=== PATIENT | female | born 1945 | race Caucasian/White ===

== ENCOUNTER 2023-04-02 05:59 | Day surgery (SDC) | payer MEDICARE, OTHER, SELFPAY ==
--- NOTE | 2023-02-26 11:39 | CM ---
Patient is scheduled for an elective L Reverse TSA on - she is a same day patient. Spoke with patient prior to surgery. Introduced role of Orthopedic Navigator. Patient reports that she lives with her and son in a two story home.
There are two (1-1) steps to enter and a flight of steps to0 the second floor. Currently she functions independently and uses a cane. She also has a commode, shower seat, nebulizer and sling. She reports a distant history of having had VN services.
PCP is Artemio Chong.
Discussed orthopedic program and post surgical plans. Patient will return home when directed by surgeon. Reviewed MD follow up and transition to outpatient therapy. Patient is in agreement with tentative plan and states that her will be home
with her and can assist if needed.
Patient will complete online education.
Plan: Orthopedic Navigator will be involved in the care of patient after surgery and will reassess discharge needs at that time.
[2023-03-13 12:56] VITALS: BMI 28.0
[2023-03-13 15:43] VITALS: BMI 28.0
[2023-04-02] VITALS (13 sets, daily range): BP systolic 112–161; BP diastolic 75–93; BMI 28.0
[2023-04-02] MEDS: TYLENOL 1000 MG PO (06:34)
[2023-04-02] MEDS: CELEBREX 200 MG PO (06:34)
[2023-04-02] MEDS: NORMOSOL-R 1000 IV (06:35)
[2023-04-02] MEDS: VANCOCIN 200 IV (06:35)
[2023-04-02] MEDS: ANCEF 5 IV (11:24)
== END 2023-04-02 12:09 | disposition home or self-care (01) ==
LOC: SDS 05:59
PROVIDERS: ATTENDING PHYSICIAN Specialist; FAMILY PHYSICIAN Physician Assistant; OTHER PHYSICIAN Internal Medicine Critical Care Medicine; OTHER PHYSICIAN Internal Medicine Interventional Cardiology; OTHER PHYSICIAN Physician Assistant
DX: M19.012 Primary osteoarthritis, left shoulder (principal)
CPT/HCPCS: 23472; 36415; 73020; 86850; 86900; 86901; 87070; 87147; C1713; C1776

== ENCOUNTER → 2023-04-17 12:58 | Outpatient (REF) | payer MEDICARE, OTHER, SELFPAY | LOC: CLAB 12:58 | PROVIDERS: ATTENDING PHYSICIAN Family Medicine | DX: R39.9 Unspecified symptoms and signs involving the genitourinary system (principal) | CPT/HCPCS: 87077; 87086; 87186 ==

== ENCOUNTER → 2023-04-22 10:52 | Outpatient (REF) | payer MEDICARE, OTHER, SELFPAY | LOC: HWRAD 10:52 | PROVIDERS: ATTENDING PHYSICIAN Physician Assistant | DX: M19.012 Primary osteoarthritis, left shoulder (principal); Z96.612 Presence of left artificial shoulder joint | CPT/HCPCS: 73030 ==

== ENCOUNTER 2023-05-01 17:04 | Emergency (ER) | payer MEDICARE, OTHER, SELFPAY ==
[2023-05-01 17:07] VITALS: BP 123/79
[2023-05-01 17:43] VITALS: BMI 27.7
[2023-05-01 17:50] VITALS: BP 124/76
[2023-05-01 18:00] VITALS: BP 135/86
--- NOTE | 2023-05-01 18:10 | ED.GENMED ---
History of Present Illness
General
Chief Complaint: Fall
Time Seen by Provider: 05/01/23 17:54
Travel History
Have you had any contact with someone who has COVID-19?: No
Do you have any symptoms of coronavirus? Fever > 100 degrees, chills, cough, shortness of breath, sore throat, loss of taste or smell, muscle aches, or headache?: No
History of Present Illness
History of Present Illness:
HPI: Patient presents by car after a fall down about 4 steps. She struck her head on the hardwood steps. She also has left knee pain and states that her knee buckled backwards during the fall. She denies any other injury other than some
intermittent comfort more so on the left side. She had surgery left shoulder about 4 weeks ago currently on a full-strength aspirin. Because of the fact that she has been favoring her shoulder she thinks she has been having trouble with her
balance and may have slipped in her slippers today as well.
EXAM:
GENERAL: Well appearing in no distress
CERVICAL SPINE: Inconsistent midline c-spine tenderness with excellent AROM also with some tenderness to the left paraspinal musculature
HEAD: There is a scalp hematoma on the right parietal region
CHEST: No chest wall tenderness, normal heart sounds
LUNGS: Equal lung sounds, no respiratory distress
ABDOMEN: No abdominal tenderness, no peritoneal signs
EXTREMITIES: Normal active range of motion, no tenderness
NEURO: Excellent strength all extremities, appropriate mental status, normal speech/language
TIME OF INITIAL ENCOUNTER: 6:15 PM
NUMBER AND COMPLEXITY OF PROBLEMS ADDRESSED AT THE ENCOUNTER
� Chronic conditions affecting care: Anxiety/depression, chronic balance problems, high blood pressure, has had bowel obstruction, hypothyroidism
� Acute Exacerbation and/or Progression of Chronic Illness: This is an acute problem
� Differential Diagnosis includes: Scalp hematoma, cervical spine fracture, knee sprain, knee fracture
AMOUNT AND/OR COMPLEXITY OF DATA TO BE REVIEWED AND ANALYZED
� I performed an independent evaluation of and my interpretation is:
EKG:
CT: I personally viewed CT imaging of the brain and C-spine and see no acute abnormality other than scalp hematoma�agree with radiologist
X-rays: X-ray shows no acute abnormality
Laboratory Studies:
Other:
� Review of other/old records: I reviewed old records, the patient went to the OR with Dr. Morrell on 04/02/2023 related to osteoarthritis of the left hip
� Clinical information was obtained by an independent historian: I spoke to the at bedside
� Prescriptions/Medications Considered but not given:
� Further testing considered but not performed:
RISK OF COMPLICATIONS AND/OR MORBIDITY OR MORTALITY OF PATIENT MANAGEMENT
� Social determinants of health affecting care: Lives at home
� Discussion with other providers:
� Escalation of care including admission/observation vs risk of discharge considered: The patient was given Tylenol for pain. Given the patient's age on full-strength aspirin evidence of head trauma, CT imaging was obtained.
The patient has not had no further concerns while in the ED including on reassessment at 7:30 PM, however she did ask about her left shoulder�there is no new symptoms at the left shoulder. I did examine the left shoulder more thoroughly and there
is no bony tenderness with fairly good active range of motion and postop state.
Past History
Past History
ED Past Medical History: Asthma, Fibromyalgia, HTN, Psychiatric (Depression) and Other (Scoliosis, spinal stenosis, Bowel obstructioin, )
ED Past Surgical History: Orthopedic (Right and left hip replacement. Left was twice. Right knee replacement, ) and Other (Rectocele with mesh)
Social History
Tobacco: Non-smoker
Alcohol: None
Personal:
Living: with family
Phy Exam
Physical Exam
Physical Exam:
See HPI
Course
Orders/Labs/Results
Orders:
Orders
05/01/23 18:17
CT Cervical Spine W/o Iv Contr Urgent
Comment:
Reason For Exam: trauma
CT Head W/o Iv Contrast Urgent
Comment:
Reason For Exam: head trauma R hematoma
Acetaminophen [Tylenol] 650 mg PO NOW STA
CR Knee - Left 4 Or More View* Urgent
Comment:
Reason For Exam: trauma pain superior patella
Vital Signs
Initial and Last Documented VS:
Initial Vital Signs
Temp Pulse Resp BP Pulse Ox
98.3 F 90 18 123/79 98
05/01/23 17:07 05/01/23 17:07 05/01/23 17:07 05/01/23 17:07 05/01/23 17:07
Last Documented Vital Signs
Temp Pulse Resp BP Pulse Ox
98.3 F 90 18 135/86 98
05/01/23 17:07 05/01/23 17:07 05/01/23 17:07 05/01/23 18:00 05/01/23 17:07
*Critical Care Note
Total Time (30-74mins, 75-104mins- exclusive of procedures): Not Applicable
ED Attending Note
-
Portions of this chart may have been created with voice recognition software.� Occasional wrong word or��sound alike� substitutions may have occurred due to the inherent limitations of voice recognition software.
Discharge Plan
Departure
Patient Disposition: Home (Routine Discharge)
Date of Disposition: 05/01/23
Time of Disposition: 19:32
Patient with high blood pressure during this ER visit?: Yes
Discharge Problem:
Hematoma of scalp
Prescriptions:
No Action
cetirizine 10 mg Tablet
10 mg PO HS
levothyroxine [Synthroid] 75 mcg Tablet
75 mcg PO DAILY
ferrous sulfate [Iron (ferrous sulfate)] 325 mg (65 mg iron) Tablet
325 mg PO [id number]
buspirone 10 mg Tablet
10 mg PO HS
cyclosporine [Restasis] 0.05 % Dropperette
1 drp OPHTHALMIC (EYE) Q12H
coenzyme Q10 [Co Q-10] 200 mg Capsule
200 mg PO DAILY
Hold Instructions: Resume on 04/09/23.
pregabalin [Lyrica] 75 mg Capsule
75 mg PO DAILY
pregabalin [Lyrica] 100 mg Capsule
100 mg PO HS
omeprazole 20 mg Tablet,Delayed Release (Dr/Ec)
20 mg PO DAILY
Prolia 60 mg/mL Syringe
60 mg SC [id number]
Rx Instructions:
next dose - week of 03/10
Centrum Silver Women 8 mg iron-400 mcg-50 mcg Tablet
1 tab PO DAILY
latanoprost (PF) 0.005 % Dropperette
1 drp OPHTHALMIC (EYE) QPM
tramadol 50 mg tablet
50 - 100 mg PO Q6H PRN (Reason: moderate-severe pain) Qty: 30 0RF
Rx Instructions:
1 tab for moderate pain, 2 if severe.
Dx total joint.
meloxicam 15 mg tablet
15 mg PO DAILY Qty: 14 0RF
Rx Instructions:
Take with food.
DO NOT take within 2 hours of Aspirin post-surgery.
dexamethasone 4 mg tablet
4 mg PO BID Qty: 7 0RF
Rx Instructions:
Start night of discharge and take twice a day for 3 days post-surgery.
Take with food.
ondansetron HCl 4 mg tablet
4 mg PO Q6H PRN (Reason: nausea and vomiting) Qty: 30 0RF
Rx Instructions:
Can take 1/2 hour prior to Tramadol if experiencing recurrent nausea.
Benefiber (guar gum)
2 tsp PO DAILY
calcium carbonate [Calcium 600] 600 mg calcium (1,500 mg) tablet
600 mg PO DAILY Qty: 1 0RF
mupirocin 2 % ointment
1 applic intranasal BID Qty: 1 0RF
Rx Instructions:
Continue twice a day for 2 weeks post-surgery as surgical incision heals.
aspirin 325 mg tablet
325 mg PO DAILY Qty: 30 0RF
Rx Instructions:
Take daily x4 weeks for blood clot prevention
docusate sodium [Colace] 100 mg capsule
100 mg PO BID Qty: 30 0RF
sennosides [senna] 8.6 mg tablet
17.2 mg PO BID Qty: 30 0RF
losartan 50 mg Tablet
50 mg PO HS Qty: 0 0RF
Rx Instructions:
HOLD IF systolic blood pressure <130 while on Tramadol.
acetaminophen 650 mg Tablet Extended Release
1,300 mg PO Q8H Qty: 0 0RF
Rx Instructions:
DO NOT exceed >4000 mg daily
Referrals:
Artemio Chong PA-C [Family Provider] -
Activity Restrictions/Additional Instructions:
The CAT scan of your brain shows no bleeding inside the brain. The CAT scan of the cervical spine shows degenerative disease but no sign of fracture. The x-ray shows some arthritic changes but no sign of fracture or fluid buildup.
Interventions
Interventions:
*Risk Screen - Suicide Last Done: 05/01/23 17:07
*General Assessment Last Done: 05/01/23 17:07
*Neglect/Abuse Screening Last Done: 05/01/23 17:07
ED- Fall Risk Assessment Last Done: 05/01/23 17:43
*ED COVID-19 Vaccine History Last Done: 05/01/23 17:07
ED-Musculoskeletal Assessment Last Done: 05/01/23 17:43
ED- Neurological Assessment Last Done: 05/01/23 17:43
ED-Skin Assessment Last Done: 05/01/23 17:43
[2023-05-01] MEDS: TYLENOL 650 MG PO (18:33)
== END 2023-05-01 19:55 | disposition home or self-care (01) ==
LOC: EMR 17:04
PROVIDERS: EMERGENCY PHYSICIAN Emergency Medicine; FAMILY PHYSICIAN Physician Assistant
DX: S00.03XA Contusion of scalp, initial encounter (principal); M25.562 Pain in left knee; W10.9XXA Fall (on) (from) unspecified stairs and steps, initial encounter; I10 Essential (primary) hypertension; F41.9 Anxiety disorder, unspecified; F32.A Depression, unspecified; E03.9 Hypothyroidism, unspecified; M16.12 Unilateral primary osteoarthritis, left hip; J45.909 Unspecified asthma, uncomplicated; M79.7 Fibromyalgia; Z96.651 Presence of right artificial knee joint; Z96.642 Presence of left artificial hip joint; Z98.890 Other specified postprocedural states; Z79.82 Long term (current) use of aspirin; Z88.1 Allergy status to other antibiotic agents; Z88.0 Allergy status to penicillin; Z88.8 Allergy status to other drugs, medicaments and biological substances
CPT/HCPCS: 99284; 70450; 72125; 73564

== ENCOUNTER → 2023-05-06 14:24 | Outpatient (REF) | payer MEDICARE, OTHER, SELFPAY | LOC: CLAB 14:24 | PROVIDERS: ATTENDING PHYSICIAN Family Medicine | DX: N39.0 Urinary tract infection, site not specified (principal) | CPT/HCPCS: 87086 ==

== ENCOUNTER → 2023-05-09 10:05 | Outpatient (REF) | payer MEDICARE, OTHER, SELFPAY ==
[2023-05-09 17:56] LABS: Urine Albumin Trace (Neg - Trace); Urine Bilirubin Negative (Negative); Urine Character Clear (Clear); Urine Color Yellow; Urine Glucose Negative (Negative); Urine Ketone Negative (Negative); Urine Leukocyte Negative (Negative); Urine Nitrite Negative (Negative); Urine Occult Blood Negative (Negative); Urine Urobilinogen Negative (Neg - 1+)
== END ==
LOC: CLAB 10:05
PROVIDERS: ATTENDING PHYSICIAN Family Medicine
DX: N39.0 Urinary tract infection, site not specified (principal)
CPT/HCPCS: 81003; 87086

== ENCOUNTER → 2023-05-24 19:15 | Outpatient (REF) | payer MEDICARE, OTHER, SELFPAY | LOC: MRI 3T 19:15 | PROVIDERS: ATTENDING PHYSICIAN Physician Assistant | DX: G89.29 Other chronic pain (principal); M25.562 Pain in left knee | CPT/HCPCS: 73721 ==

== ENCOUNTER → 2023-06-10 10:02 | Outpatient (REF) | payer MEDICARE, OTHER, SELFPAY ==
[2023-06-10 12:52] LABS: % Basophils 1.1 % (0-2); % Eosinophils 5.5 % (0-6); % Immature Granulocytes 0.2 % (0-0.5); % Lymphocytes 42.8 % (20.5-51.1); % Neutrophils 40.4 % (42.2-75.2); Absolute Basophils 0.1 10^3/uL (0-0.2); Absolute Eosinophils 0.3 10^3/uL (0-0.7); Absolute Monocytes 0.5 10^3/uL (0.1-0.6); Absolute Neutrophils 1.9 10^3/uL (1.4-6.5); Hematocrit 31.7 % (37.0-47.0); Hemoglobin 9.9 g/dL (12.0-16.0); Mean Corp Hgb Conc. 31.2 g/dL (33.0-37.0); Mean Corpuscular Hgb 26.1 pg (27.0-31.0); Mean Corpuscular Volume 83.4 fL (81.0-99.0); Mean Platelet Volume 10.1 fL (7.4-10.4); Nucleated Red Blood Cells % 0 %; Platelet Count 286 10^3/uL (130-400); Red Cell Dist. Width 15.1 % (11.5-14.5); White Blood Cell Count 4.7 10^3/uL (4.8-10.8)
[2023-06-10 13:46] LABS: ALT (SGPT) 15 U/L (0-35); AST (SGOT) 28 U/L (14-36); Alkaline Phosphatase 64 U/L (38-126); Blood Urea Nitrogen 14 mg/dl (7-17); Calcium 9.1 mg/dl (8.4-10.2); Carbon Dioxide 26 mmol/L (22-30); Chloride 104 mmol/L (98-107); Glucose 90 mg/dl (70-99); Potassium 4.9 mmol/L (3.5-5.1); Sodium 136 mmol/L (135-145); Total Bilirubin 0.4 mg/dl (0.2-1.3); Total Protein 6.9 g/dl (6.3-8.2); eGFR > 60.00
== END ==
LOC: HWLAB 10:02
PROVIDERS: ATTENDING PHYSICIAN Internal Medicine Rheumatology; FAMILY PHYSICIAN Physician Assistant
DX: M25.512 Pain in left shoulder (principal); M25.552 Pain in left hip; M81.0 Age-related osteoporosis without current pathological fracture; Z51.81 Encounter for therapeutic drug level monitoring
CPT/HCPCS: 36415; 80053; 85025

== ENCOUNTER → 2023-06-12 10:48 | Outpatient (REF) | payer MEDICARE, OTHER, SELFPAY | LOC: HWRAD 10:48 | PROVIDERS: ATTENDING PHYSICIAN Internal Medicine Rheumatology; FAMILY PHYSICIAN Physician Assistant | DX: M81.0 Age-related osteoporosis without current pathological fracture (principal); Z13.820 Encounter for screening for osteoporosis | CPT/HCPCS: 77080 ==

== ENCOUNTER → 2023-07-01 10:47 | Outpatient (REF) | payer MEDICARE, OTHER, SELFPAY ==
[2023-07-01 15:30] LABS: ALT (SGPT) 18 U/L (0-35); AST (SGOT) 31 U/L (14-36); Albumin 4.1 g/dl (3.5-5.0); Alkaline Phosphatase 55 U/L (38-126); Blood Urea Nitrogen 18 mg/dl (7-17); Calcium 9.1 mg/dl (8.4-10.2); Carbon Dioxide 29 mmol/L (22-30); Chloride 101 mmol/L (98-107); Direct Bilirubin 0.2 mg/dl (0.0-0.4); Glucose 92 mg/dl (70-99); LDH 252 U/L (120-246); Potassium 4.7 mmol/L (3.5-5.1); Sodium 136 mmol/L (135-145); Total Bilirubin 0.3 mg/dl (0.2-1.3); eGFR > 60.00
[2023-07-01 15:31] LABS: CRP, Highly Sensitive 2.06 mg/L
[2023-07-01 15:34] LABS: Erythrocyte Sed Rate 30 mm/hour (0-20)
[2023-07-01 15:40] LABS: % Basophils 0.8 % (0-2); % Eosinophils 3.3 % (0-6); % Immature Granulocytes 0.2 % (0-0.5); % Monocytes 11.4 % (1.7-9.3); % Neutrophils 42.3 % (42.2-75.2); Absolute Eosinophils 0.2 10^3/uL (0-0.7); Absolute Lymphocytes 2.1 10^3/uL (1.2-3.4); Absolute Monocytes 0.6 10^3/uL (0.1-0.6); Absolute Neutrophils 2.2 10^3/uL (1.4-6.5); Hematocrit 32.8 % (37.0-47.0); Hemoglobin 10.5 g/dL (12.0-16.0); Mean Corpuscular Hgb 26.2 pg (27.0-31.0); Mean Corpuscular Volume 81.8 fL (81.0-99.0); Mean Platelet Volume 10.1 fL (7.4-10.4); Nucleated Red Blood Cells % 0 %; Platelet Count 285 10^3/uL (130-400); Red Blood Cell Count 4.01 10^6/uL (4.20-5.40); Red Cell Dist. Width 15.5 % (11.5-14.5); Reticulocyte Count 0.9 % (0.4-2.8); White Blood Cell Count 5.1 10^3/uL (4.8-10.8)
[2023-07-01 16:34] LABS: Folate > 20.0 ng/ml (2.76-20); Vitamin B12 409 pg/ml (239-931)
== END ==
LOC: HWLAB 10:47
PROVIDERS: ATTENDING PHYSICIAN Nurse Practitioner Adult Health; FAMILY PHYSICIAN Physician Assistant
DX: D64.9 Anemia, unspecified (principal); R53.82 Chronic fatigue, unspecified; D50.9 Iron deficiency anemia, unspecified
CPT/HCPCS: 36415; 80053; 82248; 82607; 82668; 82746; 82784; 83010; 83521; 83615; 84155; 84165; 85025; 85045; 85652; 86038; 86141; 86334; 86880

== ENCOUNTER → 2023-08-30 11:10 | Outpatient (REF) | payer MEDICARE, OTHER, SELFPAY ==
[2023-08-30 15:59] LABS: Iron 64 ug/dl (37-170)
[2023-08-30 16:09] LABS: Percent Saturation 17 % (20-50); Total Iron Binding Capacity 357 ug/dl (265-497)
[2023-08-30 16:10] LABS: % Basophils 0.6 % (0-2); % Eosinophils 2.5 % (0-6); % Immature Granulocytes 0.3 % (0-0.5); % Lymphocytes 31.8 % (20.5-51.1); % Monocytes 9.7 % (1.7-9.3); % Neutrophils 55.1 % (42.2-75.2); Absolute Eosinophils 0.2 10^3/uL (0-0.7); Absolute Monocytes 0.6 10^3/uL (0.1-0.6); Absolute Neutrophils 3.5 10^3/uL (1.4-6.5); Hematocrit 33.9 % (37.0-47.0); Hemoglobin 11.1 g/dL (12.0-16.0); Mean Corp Hgb Conc. 32.7 g/dL (33.0-37.0); Mean Corpuscular Hgb 26.9 pg (27.0-31.0); Mean Corpuscular Volume 82.1 fL (81.0-99.0); Mean Platelet Volume 9.9 fL (7.4-10.4); Nucleated Red Blood Cells % 0 %; Platelet Count 298 10^3/uL (130-400); Red Blood Cell Count 4.13 10^6/uL (4.20-5.40); Red Cell Dist. Width 15.1 % (11.5-14.5); White Blood Cell Count 6.3 10^3/uL (4.8-10.8)
[2023-08-30 16:36] LABS: Ferritin 39.7 ng/ml (11.1-264.0)
== END ==
LOC: HWLAB 11:10
PROVIDERS: ATTENDING PHYSICIAN Internal Medicine Hematology & Oncology; FAMILY PHYSICIAN Family Medicine
DX: D64.9 Anemia, unspecified (principal); R53.82 Chronic fatigue, unspecified
CPT/HCPCS: 36415; 82728; 83540; 83550; 85025

== ENCOUNTER → 2023-09-16 15:53 | Outpatient (REF) | payer MEDICARE, OTHER, SELFPAY ==
[2023-09-16 16:18] LABS: % Basophils 0.6 % (0-2); % Eosinophils 1.9 % (0-6); % Immature Granulocytes 0.4 % (0-0.5); % Lymphocytes 31.9 % (20.5-51.1); % Monocytes 10.3 % (1.7-9.3); % Neutrophils 54.9 % (42.2-75.2); Absolute Eosinophils 0.1 10^3/uL (0-0.7); Absolute Lymphocytes 2.3 10^3/uL (1.2-3.4); Absolute Monocytes 0.7 10^3/uL (0.1-0.6); Hematocrit 32.2 % (37.0-47.0); Hemoglobin 10.8 g/dL (12.0-16.0); Mean Corp Hgb Conc. 33.5 g/dL (33.0-37.0); Mean Corpuscular Hgb 27.4 pg (27.0-31.0); Mean Corpuscular Volume 81.7 fL (81.0-99.0); Mean Platelet Volume 9.9 fL (7.4-10.4); Nucleated Red Blood Cells % 0 %; Platelet Count 285 10^3/uL (130-400); Red Blood Cell Count 3.94 10^6/uL (4.20-5.40); Red Cell Dist. Width 14.8 % (11.5-14.5); White Blood Cell Count 7.2 10^3/uL (4.8-10.8)
== END ==
LOC: OIDL 15:53
PROVIDERS: ATTENDING PHYSICIAN Internal Medicine Hematology & Oncology
DX: D64.9 Anemia, unspecified (principal)
CPT/HCPCS: 85025

== ENCOUNTER → 2023-10-16 11:28 | Outpatient (REF) | payer MEDICARE, OTHER, SELFPAY ==
[2023-10-16 15:45] LABS: % Basophils 1.1 % (0-2); % Eosinophils 7.5 % (0-6); % Immature Granulocytes 0.6 % (0-0.5); % Monocytes 9.9 % (1.7-9.3); % Neutrophils 44.9 % (42.2-75.2); Absolute Basophils 0.1 10^3/uL (0-0.2); Absolute Eosinophils 0.4 10^3/uL (0-0.7); Absolute Lymphocytes 1.9 10^3/uL (1.2-3.4); Absolute Monocytes 0.5 10^3/uL (0.1-0.6); Absolute Neutrophils 2.4 10^3/uL (1.4-6.5); Hemoglobin 11.1 g/dL (12.0-16.0); Mean Corp Hgb Conc. 33.6 g/dL (33.0-37.0); Mean Corpuscular Hgb 28.2 pg (27.0-31.0); Mean Platelet Volume 9.5 fL (7.4-10.4); Nucleated Red Blood Cells % 0 %; Platelet Count 319 10^3/uL (130-400); Red Blood Cell Count 3.93 10^6/uL (4.20-5.40); Red Cell Dist. Width 15.6 % (11.5-14.5); White Blood Cell Count 5.4 10^3/uL (4.8-10.8)
[2023-10-16 15:48] LABS: Iron 88 ug/dl (37-170)
[2023-10-16 15:57] LABS: Percent Saturation 32 % (20-50); Total Iron Binding Capacity 275 ug/dl (265-497)
== END ==
LOC: HWLAB 11:28
PROVIDERS: ATTENDING PHYSICIAN Internal Medicine Hematology & Oncology; FAMILY PHYSICIAN Family Medicine
DX: D64.9 Anemia, unspecified (principal); R53.82 Chronic fatigue, unspecified; D50.8 Other iron deficiency anemias
CPT/HCPCS: 36415; 82728; 83540; 83550; 85025

== ENCOUNTER → 2023-12-26 11:18 | Outpatient (REF) | payer MEDICARE, OTHER, SELFPAY ==
[2023-12-26 15:22] LABS: ALT (SGPT) 20 U/L (0-35); AST (SGOT) 31 U/L (14-36); Albumin 4.3 g/dl (3.5-5.0); Alkaline Phosphatase 45 U/L (38-126); Blood Urea Nitrogen 18 mg/dl (7-17); Calcium 9.4 mg/dl (8.4-10.2); Carbon Dioxide 30 mmol/L (22-30); Chloride 102 mmol/L (98-107); Glucose 90 mg/dl (70-99); HDL Cholesterol 52 mg/dl; LDL Cholesterol, Calculated 82 mg/dl; Potassium 4.4 mmol/L (3.5-5.1); Sodium 143 mmol/L (135-145); Total Bilirubin 0.3 mg/dl (0.2-1.3); Total Cholesterol 173 mg/dl (50-199); Total Protein 7.2 g/dl (6.3-8.2); Triglyceride 198 mg/dl (10-149); Very Low Density Lipoprotein 39 mg/dl (0-30); eGFR > 60.00
[2023-12-26 15:33] LABS: % Basophils 0.9 % (0-2); % Eosinophils 5.9 % (0-6); % Immature Granulocytes 0.3 % (0-0.5); % Lymphocytes 41.5 % (20.5-51.1); % Monocytes 9.7 % (1.7-9.3); % Neutrophils 41.7 % (42.2-75.2); Absolute Basophils 0.1 10^3/uL (0-0.2); Absolute Eosinophils 0.3 10^3/uL (0-0.7); Absolute Lymphocytes 2.4 10^3/uL (1.2-3.4); Absolute Monocytes 0.6 10^3/uL (0.1-0.6); Absolute Neutrophils 2.4 10^3/uL (1.4-6.5); Hematocrit 37.3 % (37.0-47.0); Hemoglobin 12.4 g/dL (12.0-16.0); Mean Corp Hgb Conc. 33.2 g/dL (33.0-37.0); Mean Corpuscular Hgb 30.1 pg (27.0-31.0); Mean Corpuscular Volume 90.5 fL (81.0-99.0); Nucleated Red Blood Cells % 0 %; Platelet Count 266 10^3/uL (130-400); Red Blood Cell Count 4.12 10^6/uL (4.20-5.40); Red Cell Dist. Width 14.1 % (11.5-14.5); White Blood Cell Count 5.8 10^3/uL (4.8-10.8)
[2023-12-26 15:39] LABS: Free T4 1.31 ng/dl (0.78-2.19)
[2023-12-26 15:53] LABS: TSH 2.44 uIU/ml (0.47-4.68)
[2023-12-27 10:07] LABS: Glycohemoglobin (HgbA1c) 5.7 % (4.0-5.6)
== END ==
LOC: HWLAB 11:18
PROVIDERS: ATTENDING PHYSICIAN Family Medicine
DX: R73.03 Prediabetes (principal); E03.9 Hypothyroidism, unspecified
CPT/HCPCS: 36415; 80053; 80061; 83036; 84439; 84443; 85025

== ENCOUNTER → 2024-01-08 16:29 | Outpatient (REF) | payer MEDICARE, OTHER, SELFPAY | LOC: PAVMRI 16:29 | PROVIDERS: ATTENDING PHYSICIAN Physical Medicine & Rehabilitation Pain Medicine; FAMILY PHYSICIAN Family Medicine | DX: M54.16 Radiculopathy, lumbar region (principal) | CPT/HCPCS: 72148 ==

== ENCOUNTER → 2024-02-10 10:51 | Outpatient (REF) | payer MEDICARE, OTHER, SELFPAY ==
[2024-02-10 16:02] LABS: % Basophils 0.9 % (0-2); % Eosinophils 6.5 % (0-6); % Immature Granulocytes 0.4 % (0-0.5); % Lymphocytes 33.6 % (20.5-51.1); % Monocytes 10.9 % (1.7-9.3); % Neutrophils 47.7 % (42.2-75.2); Absolute Basophils 0.1 10^3/uL (0-0.2); Absolute Eosinophils 0.4 10^3/uL (0-0.7); Absolute Lymphocytes 1.8 10^3/uL (1.2-3.4); Absolute Monocytes 0.6 10^3/uL (0.1-0.6); Absolute Neutrophils 2.6 10^3/uL (1.4-6.5); Hemoglobin 11.8 g/dL (12.0-16.0); Mean Corp Hgb Conc. 31.1 g/dL (33.0-37.0); Mean Corpuscular Hgb 29.4 pg (27.0-31.0); Mean Corpuscular Volume 94.5 fL (81.0-99.0); Mean Platelet Volume 10.3 fL (7.4-10.4); Nucleated Red Blood Cells % 0 %; Platelet Count 247 10^3/uL (130-400); Red Blood Cell Count 4.02 10^6/uL (4.20-5.40); Red Cell Dist. Width 12.8 % (11.5-14.5); White Blood Cell Count 5.4 10^3/uL (4.8-10.8)
[2024-02-10 16:18] LABS: Iron 80 ug/dl (37-170)
[2024-02-10 16:27] LABS: Percent Saturation 27 % (20-50); Total Iron Binding Capacity 286 ug/dl (265-497)
== END ==
LOC: HWLAB 10:51
PROVIDERS: ATTENDING PHYSICIAN Nurse Practitioner Adult Health; FAMILY PHYSICIAN Family Medicine
DX: D64.9 Anemia, unspecified (principal); R53.82 Chronic fatigue, unspecified; D50.8 Other iron deficiency anemias
CPT/HCPCS: 36415; 82728; 83540; 83550; 85025

== ENCOUNTER → 2024-03-18 10:02 | Outpatient (REF) | payer MEDICARE, OTHER, SELFPAY ==
[2024-03-18 11:54] LABS: % Basophils 0.5 % (0-2); % Eosinophils 3.8 % (0-6); % Immature Granulocytes 0.3 % (0-0.5); % Lymphocytes 29.4 % (20.5-51.1); % Monocytes 9.3 % (1.7-9.3); % Neutrophils 56.7 % (42.2-75.2); Absolute Eosinophils 0.2 10^3/uL (0-0.7); Absolute Lymphocytes 1.7 10^3/uL (1.2-3.4); Absolute Monocytes 0.5 10^3/uL (0.1-0.6); Absolute Neutrophils 3.2 10^3/uL (1.4-6.5); Hematocrit 37.7 % (37.0-47.0); Hemoglobin 12.5 g/dL (12.0-16.0); Mean Corp Hgb Conc. 33.2 g/dL (33.0-37.0); Mean Corpuscular Hgb 30.3 pg (27.0-31.0); Mean Corpuscular Volume 91.5 fL (81.0-99.0); Mean Platelet Volume 9.8 fL (7.4-10.4); Nucleated Red Blood Cells % 0 %; Platelet Count 260 10^3/uL (130-400); Red Blood Cell Count 4.12 10^6/uL (4.20-5.40); Red Cell Dist. Width 12.5 % (11.5-14.5); White Blood Cell Count 5.7 10^3/uL (4.8-10.8)
[2024-03-18 13:19] LABS: ALT (SGPT) 18 U/L (0-35); AST (SGOT) 27 U/L (14-36); Albumin 4.6 g/dl (3.5-5.0); Alkaline Phosphatase 49 U/L (38-126); Blood Urea Nitrogen 14 mg/dl (7-17); Calcium 9.6 mg/dl (8.4-10.2); Carbon Dioxide 27 mmol/L (22-30); Chloride 101 mmol/L (98-107); Glucose 87 mg/dl (70-99); Iron 114 ug/dl (37-170); Potassium 4.1 mmol/L (3.5-5.1); Sodium 138 mmol/L (135-145); Total Bilirubin 0.8 mg/dl (0.2-1.3); Total Protein 7.1 g/dl (6.3-8.2); eGFR > 60.00
[2024-03-18 13:28] LABS: Percent Saturation 38 % (20-50); Total Iron Binding Capacity 296 ug/dl (265-497)
[2024-03-18 13:55] LABS: Glycohemoglobin (HgbA1c) 5.4 % (4.0-5.6)
[2024-03-18 16:37] LABS: TSH 2.51 uIU/ml (0.47-4.68)
== END ==
LOC: HWLAB 10:02
PROVIDERS: ATTENDING PHYSICIAN Family Medicine
DX: D58.2 Other hemoglobinopathies (principal); D50.9 Iron deficiency anemia, unspecified; E03.9 Hypothyroidism, unspecified; I10 Essential (primary) hypertension; R73.03 Prediabetes
CPT/HCPCS: 36415; 80053; 82728; 83036; 83540; 83550; 84439; 84443; 85025

== ENCOUNTER → 2024-04-01 14:27 | Outpatient (REF) | payer MEDICARE, OTHER, SELFPAY | LOC: DHSLP 14:27 | PROVIDERS: ATTENDING PHYSICIAN Internal Medicine Critical Care Medicine; FAMILY PHYSICIAN Family Medicine | DX: G47.33 Obstructive sleep apnea (adult) (pediatric) (principal) | CPT/HCPCS: 95800 ==

== ENCOUNTER → 2024-04-15 11:10 | Outpatient (REF) | payer MEDICARE, OTHER, SELFPAY | LOC: HWRCS 11:10 | PROVIDERS: ATTENDING PHYSICIAN Physician Assistant Medical; FAMILY PHYSICIAN Family Medicine | DX: R00.2 Palpitations (principal); R06.09 Other forms of dyspnea | CPT/HCPCS: 93306 ==

== ENCOUNTER → 2024-05-04 10:44 | Outpatient (REF) | payer MEDICARE, OTHER, SELFPAY ==
[2024-05-04 17:24] LABS: % Basophils 0.6 % (0-2); % Eosinophils 4.2 % (0-6); % Immature Granulocytes 0.4 % (0-0.5); % Lymphocytes 37.2 % (20.5-51.1); % Monocytes 10.3 % (1.7-9.3); % Neutrophils 47.3 % (42.2-75.2); Absolute Eosinophils 0.2 10^3/uL (0-0.7); Absolute Lymphocytes 1.9 10^3/uL (1.2-3.4); Absolute Monocytes 0.5 10^3/uL (0.1-0.6); Absolute Neutrophils 2.4 10^3/uL (1.4-6.5); Hematocrit 36.5 % (37.0-47.0); Hemoglobin 12.3 g/dL (12.0-16.0); Mean Corp Hgb Conc. 33.7 g/dL (33.0-37.0); Mean Corpuscular Hgb 30.3 pg (27.0-31.0); Mean Corpuscular Volume 89.9 fL (81.0-99.0); Mean Platelet Volume 10.6 fL (7.4-10.4); Nucleated Red Blood Cells % 0 %; Platelet Count 228 10^3/uL (130-400); Red Blood Cell Count 4.06 10^6/uL (4.20-5.40); Red Cell Dist. Width 12.1 % (11.5-14.5)
[2024-05-04 17:36] LABS: Iron 103 ug/dl (37-170)
[2024-05-04 17:45] LABS: Percent Saturation 36 % (20-50); Total Iron Binding Capacity 281 ug/dl (265-497)
== END ==
LOC: HWLAB 10:44
PROVIDERS: ATTENDING PHYSICIAN Nurse Practitioner Adult Health; FAMILY PHYSICIAN Family Medicine
DX: D64.9 Anemia, unspecified (principal); R53.82 Chronic fatigue, unspecified; D50.8 Other iron deficiency anemias
CPT/HCPCS: 36415; 82728; 83540; 83550; 85025

== ENCOUNTER 2024-06-17 06:28 | Day surgery (SDC) | payer MEDICARE, OTHER, SELFPAY | END 2024-06-17 14:33 | disposition home or self-care (01) | LOC: GI 06:28 | PROVIDERS: ATTENDING PHYSICIAN Internal Medicine Gastroenterology | DX: K44.9 Diaphragmatic hernia without obstruction or gangrene (principal); K22.2 Esophageal obstruction; K31.89 Other diseases of stomach and duodenum; R13.10 Dysphagia, unspecified | CPT/HCPCS: 43249; 43239; 88305; 88342 ==

== ENCOUNTER → 2024-06-23 11:10 | Outpatient (REF) | payer MEDICARE, OTHER, SELFPAY ==
[2024-06-23 16:40] LABS: Urine Albumin Negative (Neg - Trace); Urine Bilirubin Negative (Negative); Urine Character Clear (Clear); Urine Color Yellow; Urine Glucose Negative (Negative); Urine Ketone Negative (Negative); Urine Leukocyte Negative (Negative); Urine Nitrite Negative (Negative); Urine Occult Blood Negative (Negative); Urine Urobilinogen Negative (Neg - 1+)
[2024-06-23 16:50] LABS: ALT (SGPT) 16 U/L (0-35); AST (SGOT) 25 U/L (14-36); Albumin 4.1 g/dl (3.5-5.0); Alkaline Phosphatase 42 U/L (38-126); Blood Urea Nitrogen 11 mg/dl (7-17); Calcium 9.1 mg/dl (8.4-10.2); Carbon Dioxide 27 mmol/L (22-30); Chloride 108 mmol/L (98-107); Glucose 87 mg/dl (70-99); HDL Cholesterol 53 mg/dl; Iron 112 ug/dl (37-170); LDL Cholesterol, Calculated 87 mg/dl; Magnesium 1.8 mg/dl (1.6-2.3); Phosphorus 4.3 mg/dl (2.5-4.5); Potassium 4.2 mmol/L (3.5-5.1); Sodium 140 mmol/L (135-145); Total Bilirubin 0.6 mg/dl (0.2-1.3); Total Cholesterol 162 mg/dl (50-199); Total Protein 6.7 g/dl (6.3-8.2); Triglyceride 110 mg/dl (10-149); Very Low Density Lipoprotein 22 mg/dl (0-30); eGFR > 60.00
[2024-06-23 16:58] LABS: Percent Saturation 40 % (20-50); Total Iron Binding Capacity 278 ug/dl (265-497)
[2024-06-23 17:02] LABS: % Basophils 0.7 % (0-2); % Eosinophils 3.6 % (0-6); % Immature Granulocytes 0.4 % (0-0.5); % Lymphocytes 37.9 % (20.5-51.1); % Monocytes 9.9 % (1.7-9.3); % Neutrophils 47.5 % (42.2-75.2); Absolute Eosinophils 0.2 10^3/uL (0-0.7); Absolute Lymphocytes 2.1 10^3/uL (1.2-3.4); Absolute Monocytes 0.6 10^3/uL (0.1-0.6); Absolute Neutrophils 2.6 10^3/uL (1.4-6.5); Hematocrit 35.4 % (37.0-47.0); Hemoglobin 11.5 g/dL (12.0-16.0); Mean Corp Hgb Conc. 32.5 g/dL (33.0-37.0); Mean Corpuscular Volume 89.4 fL (81.0-99.0); Mean Platelet Volume 10.4 fL (7.4-10.4); Nucleated Red Blood Cells % 0 %; Platelet Count 232 10^3/uL (130-400); Red Blood Cell Count 3.96 10^6/uL (4.20-5.40); Red Cell Dist. Width 12.3 % (11.5-14.5); White Blood Cell Count 5.6 10^3/uL (4.8-10.8)
[2024-06-23 17:20] LABS: TSH 3.53 uIU/ml (0.47-4.68)
[2024-06-24 09:05] LABS: Glycohemoglobin (HgbA1c) 5.6 % (4.0-5.6)
== END ==
LOC: HWLAB 11:10
PROVIDERS: ATTENDING PHYSICIAN Family Medicine
DX: D58.2 Other hemoglobinopathies (principal); E78.9 Disorder of lipoprotein metabolism, unspecified; D50.9 Iron deficiency anemia, unspecified; E03.9 Hypothyroidism, unspecified; I10 Essential (primary) hypertension; R73.03 Prediabetes
CPT/HCPCS: 36415; 80053; 80061; 81003; 82728; 83036; 83540; 83550; 83735; 84100; 84439; 84443; 84550; 85025

== ENCOUNTER → 2024-07-28 14:37 | Outpatient (REF) | payer MEDICARE, OTHER, SELFPAY | LOC: HWRAD 14:37 | PROVIDERS: ATTENDING PHYSICIAN Nurse Practitioner Family; FAMILY PHYSICIAN Family Medicine | DX: R05.3 Chronic cough (principal) | CPT/HCPCS: 71046 ==

== ENCOUNTER → 2024-10-19 12:24 | Outpatient (REF) | payer MEDICARE, OTHER, SELFPAY | LOC: HWLAB 12:24 | PROVIDERS: ATTENDING PHYSICIAN Physician Assistant Medical | DX: R35.0 Frequency of micturition (principal) | CPT/HCPCS: 87086 ==

== ENCOUNTER → 2024-10-21 09:20 | Outpatient (REF) | payer MEDICARE, OTHER, SELFPAY ==
[2024-10-21 13:37] LABS: Cortisol, Random 0.3 ug/dl
[2024-10-22 18:31] LABS: Capillary Hgb Electrophoresis Not Performed; Hemoglobin - Other 0.0 % (0.0-0.0); Sickle Cell Solubility Reflex Not Performed
[2024-10-26 20:42] LABS: C282y Hemochromatosis Variant Negative; H63D Hemochromatosis Variant Negative; Hemochromatosis (HFE) Specimen Whole Blood; S65c Hemochromatosis Variant Negative
== END ==
LOC: HWLAB 09:20
PROVIDERS: ATTENDING PHYSICIAN Physician Assistant Medical
DX: R53.83 Other fatigue (principal); R79.89 Other specified abnormal findings of blood chemistry
CPT/HCPCS: 36415; 81256; 82533; 83021

== ENCOUNTER → 2024-12-17 14:26 | Outpatient (REF) | payer MEDICARE, OTHER, SELFPAY | LOC: RAD 14:26 | PROVIDERS: ATTENDING PHYSICIAN Physician Assistant Medical; FAMILY PHYSICIAN Family Medicine | DX: Z09 Encounter for follow-up examination after completed treatment for conditions other than malignant neoplasm (principal); R10.30 Lower abdominal pain, unspecified | CPT/HCPCS: 74178; Q9967 ==

== ENCOUNTER → 2025-02-08 17:10 | Outpatient (REF) | payer MEDICARE, OTHER, SELFPAY | LOC: PAVMRI 17:10 | PROVIDERS: ATTENDING PHYSICIAN Physician Assistant Medical | DX: S06.0XAD Concussion with loss of consciousness status unknown, subsequent encounter (principal); R51.9 Headache, unspecified | CPT/HCPCS: 70551 ==